=== PATIENT | male | born 1985 | race Hispanic/Latino ===

== ENCOUNTER 2017-10-01 13:08 | Emergency (ER) | payer SELFPAY ==
[2017-10-01 13:27] VITALS: BP 117/54
[2017-10-01] MEDS ORDERED: NORCO 7.5/325 PO ONE (13:58)
[2017-10-01] MEDS ORDERED: DELTASONE PO ONE (13:59)
--- NOTE | 2017-10-01 14:02 | Emergency Department Report ---
ED Rash HPI - HPI Chief Complaint: Skin Rash Stated Complaint: RASH Time Seen by Provider: 10/01/17 13:35 Duration: 1 Day Location: Neck, Chest (upper chest), Back (upper back) Suspected Cause: Other (ultraviolet ) Rash Symptoms: Yes Peeling (mild), Yes Blistering, No Itching, No Facial Swelling, No Tongue/Oral Swelling, No Breathing Difficulties, No Choking Sensation, No Wheezing/Dyspnea, No Fever, No Lightheaded, No Malaise, No Myalgias Severity: severe Other History: 32-year-old male comes in for severe rash with pustules on his arms and neck upper back. She reports that this rash started yesterday. Patient admits that he's been out in the sun for 2 days. He reports that the rash is painful with some blistering. Patient reports no past medical history currently takes no medication and has allergic reaction to tramadol. But reports that he can have Percocet. ED Review of Systems ROS: Stated complaint: RASH Other details as noted in HPI Constitutional: denies: chills, fever Eyes: denies: eye pain, eye discharge, vision change ENT: denies: ear pain, throat pain Respiratory: denies: cough, shortness of breath, wheezing Cardiovascular: denies: chest pain, palpitations Endocrine: no symptoms reported Gastrointestinal: denies: abdominal pain, nausea, diarrhea Genitourinary: denies: urgency, dysuria Musculoskeletal: denies: back pain, joint swelling, arthralgia Skin: rash, lesions (neck upper back and both arms) Neurological: denies: headache, weakness, paresthesias Psychiatric: denies: anxiety, depression Hematological/Lymphatic: denies: easy bleeding, easy bruising ED Past Medical Hx - Past Medical History Previous Medical History?: No - Surgical History Past Surgical History?: No - Social History Smoking Status: Current Every Day Smoker Substance Use Type: None - Medications Home Medications: Home Medications Medication Instructions Recorded Confirmed Last Taken Type Cyclobenzaprine [Flexeril] 10 mg PO TID PRN #15 tablet 10/11/15 Unknown Rx Hydrocortisone 0.5% 1 applicatio TP TID #1 tube 10/01/17 Unknown Rx [Hydrocortisone 0.5% CREAM] Ibuprofen [Motrin 800 MG tab] 800 mg PO Q8HR PRN #21 tablet 10/01/17 Unknown Rx Loratadine [Claritin] 10 mg PO DAILY #30 tablet 10/01/17 Unknown Rx Rash Exam - Exam General: Vital signs noted. No distress. Alert and acting appropriately. HEENT: No Periorbital Edema, No Conjuctival Injection, No Chemosis, No Perioral Edema, No Tongue Edema, No Uvular Edema, No Compromised Airway, No Drooling Lungs: Yes Good Air Exchange (Normal Breath Sounds), No Wheezes, No Ronchi, No Stridor, No Cough, No Labored Respirations, No Retractions, No Use of Accessory Muscles, No Other Abnormal Lung Sounds Heart: Yes Regular, No Murmur Skin: Yes Bulla(e) (polymorphous ), Yes Tenderness, Yes Erythema ED Course Vital Signs 10/01/17 13:16 Temperature 98.4 F Pulse Rate 95 H Respiratory 20 Rate Blood Pressure 117/54 O2 Sat by Pulse 97 Oximetry ED Medical Decision Making - Medical Decision Making Patient's been evaluated by this provider faster. I discussed the patient we' ll give him [place] for pain. We will give him IV 1 L. Discussed the patient disappears to be polymorphous light eruption AKA's sun poisoning. Discussed the patient and the treatment as she is feeling an antihistamine topical cortisone ibuprofen or Tylenol for pain. Critical care attestation.: If time is entered above; I have spent that time in minutes in the direct care of this critically ill patient, excluding procedure time. ED Disposition Clinical Impression: Polymorphous light eruption Disposition: [id number] TO HOME OR SELFCARE Is pt being admited?: No Does the pt Need Aspirin: No Condition: Stable Instructions: Sunburn (ED), Sunscreen (On the skin) Additional Instructions: Please take medication and use topical hydrocortisone as prescribed. Follow up with her primary care provider if symptoms persist or gets worse. Prescriptions: Hydrocortisone 0.5% [Hydrocortisone 0.5% CREAM] 1 applicatio TP TID #1 tube Ibuprofen [Motrin 800 MG tab] 800 mg PO Q8HR PRN #21 tablet PRN Reason: Pain Loratadine [Claritin] 10 mg PO DAILY #30 tablet Referrals: PRIMARY CARE, [Primary Care Provider] - 3-5 Days Forms: Work/School Release Form(ED)
[2017-10-01] MEDS ORDERED: NACL 0.9% 1000 ML 1,000 ML IV ONE (14:03)
== END 2017-10-01 14:54 | disposition home or self-care (01) ==
LOC: ED 13:08
DX: L56.4 Polymorphous light eruption (principal); F17.200 Nicotine dependence, unspecified, uncomplicated; Z88.6 Allergy status to analgesic agent
CPT/HCPCS: 87116; 96360; 99283; J7030; J7512